=== PATIENT | female | born 1955 | race Caucasian/White ===

== ENCOUNTER → 2016-03-27 | Outpatient (CLI) | payer MEDICARE, BC ==
[~2016-03-27] MED LIST: ALLERGY PILL; ANTIDEPRESSANT PO; ESTRATEST PO; LASIX20 MG PO; METHADONE10 MG PO; ZOLOFT PO
== END ==
LOC: RAD 11:38
DX: C15.9 Malignant neoplasm of esophagus, unspecified (principal)
CPT/HCPCS: A9579